=== PATIENT | male | born 1965 | race Caucasian/White ===

== ENCOUNTER 2017-05-11 18:35 | Emergency (ER) | payer MEDICAID ==
[~2017-05-11] VITALS: Ht 185.4 cm; Wt 70.3 kg
[2017-05-11 18:56] VITALS: BP 108/77
[2017-05-12] MEDS ORDERED: cefTRIAXone SODIUM 250 MG VL IM ONE (00:15)
[2017-05-12] MEDS ORDERED: AZITHROMYCIN 250 MG TAB PO ONE (00:15)
[2017-05-12] MEDS ORDERED: MAGNESIUM CITRATE SOLUTION 300 ML BTL PO ONE (00:45)
== END 2017-05-12 01:05 | disposition home or self-care (01) ==
LOC: ER 18:35
DX: K62.89 Other specified diseases of anus and rectum (principal); B20 Human immunodeficiency virus [HIV] disease; F17.210 Nicotine dependence, cigarettes, uncomplicated; K92.1 Melena
CPT/HCPCS: 74176; 96372; 99284; J0696